=== PATIENT | female | born 1980 | race Caucasian/White ===

== ENCOUNTER 2017-04-20 13:17 | Emergency (ER) | payer MEDICARE, OTHER ==
[~2017-04-20] VITALS: Ht 152.4 cm; Wt 52.2 kg
[2017-04-20] MEDS ORDERED: DIVA125 PO (13:32)
[2017-04-20] MEDS ORDERED: LAMOTRIGINE OD200 MG PO (13:32)
== END 2017-04-20 14:22 | disposition home or self-care (01) ==
LOC: ER 13:17
DX: J06.9 Acute upper respiratory infection, unspecified (principal); Z79.899 Other long term (current) drug therapy; G40.909 Epilepsy, unspecified, not intractable, without status epilepticus
CPT/HCPCS: 99282

== ENCOUNTER 2017-10-29 18:16 | Emergency (ER) | payer MEDICARE, OTHER ==
[~2017-10-29] VITALS: Ht 152.4 cm; Wt 45.4 kg
[~2017-10-29 18:16] MED LIST: DIVA125 PO; LAMOTRIGINE OD200 MG PO
== END 2017-10-29 21:03 | disposition left against medical advice (07) ==
LOC: ER 18:16
DX: Z53.21 Procedure and treatment not carried out due to patient leaving prior to being seen by health care provider (principal)

== ENCOUNTER 2018-12-25 19:40 | Emergency (ER) | payer OTHER ==
[~2018-12-25] VITALS: Ht 124.5 cm; Wt 49.9 kg
== END 2018-12-25 21:32 | disposition home or self-care (01) ==
LOC: ER 19:40
DX: S01.111A Laceration without foreign body of right eyelid and periocular area, initial encounter (principal); G40.309 Generalized idiopathic epilepsy and epileptic syndromes, not intractable, without status epilepticus; Z79.899 Other long term (current) drug therapy; W01.10XA Fall on same level from slipping, tripping and stumbling with subsequent striking against unspecified object, initial encounter
CPT/HCPCS: 12011; 90471; 90714; 96372-59; 99282-25; J3360